=== PATIENT | male | born 1990 | race Caucasian/White ===

== ENCOUNTER 2017-09-22 09:44 | Emergency (ER) | payer MEDICAID, SELFPAY ==
[2017-09-22] MEDS ORDERED: traMADol HCl 50 MG TAB ONE (10:21)
[2017-09-22] MEDS ORDERED: Ibuprofen 400 MG TAB ONE (10:21)
[2017-09-22] MEDS ORDERED: predniSONE 20 MG TAB ONE (10:21)
[2017-09-22] MEDS ORDERED: Amoxicillin/Potassium Clav 875 MG TAB ONE (10:21)
== END 2017-09-22 10:32 | disposition home or self-care (01) ==
LOC: MADERS 09:44 → EDBD 09:44 → MADERS 10:32
DX: J02.9 Acute pharyngitis, unspecified (principal); L50.9 Urticaria, unspecified; Z87.891 Personal history of nicotine dependence
CPT/HCPCS: 99282; J7506

== ENCOUNTER 2018-02-17 06:25 | Emergency (ER) | payer MEDICAID, MEDICARE ==
[2018-02-17] MEDS ORDERED: Sodium Chloride 0.9% 1,000 ML ONE (06:51)
[2018-02-17 07:05] LABS: #Eosinphils 0.2 thou/uL (0.0-0.7); #Lymphocytes 1.7 thou/uL (1.20-3.40); #Monocytes 0.6 thou/uL (0.11-0.59); #Neutrophils 3.4 thou/uL (1.40-6.50); %Basophils 0.7 % (0.0-1.0); %Lymphocytes 28.2 % (21.0-51.0); %Monocytes 10.5 % (0.0-10.0); %Neutrophils 57.7 % (42.0-75.0); Hemoglobin 14.3 g/dL (14.0-18.0); Mean Corpuscular HGB CONC 33.8 g/dL (32.0-36.0); Mean Corpuscular Hemoglobin 30.5 pg (27.0-31.0); Mean Corpuscular Volume 90.4 fL (78.0-98.0); Mean Platelet Volume 6.2 fL (7.4-10.4); Platelet Count 238 thou/uL (130-400); RBC Distribution Width 12.1 % (11.5-14.5); White Blood Cell (WBC) Count 5.9 thou/uL (4.8-10.8)
[2018-02-17 07:20] LABS: ALT (SGPT) 31 U/L (8-55); AST (SGOT) 34 U/L (5-34); Albumin 4.4 g/dL (3.5-5.0); Alkaline Phosphatase 60 U/L (40-150); Anion Gap 15 mmol/L (10-20); BUN (Urea Nitrogen) 9 mg/dL (8.9-20.6); Bilirubin, Total 0.7 mg/dL (0.2-1.2); Calc. Creatinine Clearance 0 mL/min (70-130); Calcium 9.6 mg/dL (7.8-10.44); Carbon Dioxide 25 mmol/L (22-29); Chloride 104 mmol/L (98-107); Estimated GFR-MDRD Greater than 90; Globulin 3.3 g/dL (2.4-3.5); Glucose 116 mg/dL (70-105); Potassium 3.6 mmol/L (3.5-5.1); Protein, Total 7.7 g/dL (6.0-8.3); Sodium 140 mmol/L (136-145)
[2018-02-17] MEDS ORDERED: Clindamycin/D5W 600 mg/50 ml Premix Bag ONE (08:10)
--- NOTE | 2018-02-17 08:24 | CT ---
CT FACE WITH CONTRAST: HISTORY: Methamphetamine abuse. Right-sided jaw swelling since yesterday. Difficulty swallowing. COMPARISON: None. TECHNIQUE: Postcontrast face CT is performed in the axial plane. Reformatted images are submitted for interpret ation. FINDINGS: The visualized brain parenchyma is unremarkable. Adequate aeration of the visualized paranasal sinus es and mastoid air cells. The aerodigestive tract is patent. There is mucosal prominence and some narrowing of the aerodigesti ve tract involving the right nasopharynx, posterior right oral cavity, and hypopharynx. There is ful lness of bilateral palatine tonsils. Adenoid tonsils are not prominent. There is soft tissue swelling involving the left and right aspect of the mandible, extending down to the right aspect of the neck. There is no evidence of a drainable abscess. There is symmetric atten uation of the sternocleidomastoid muscles. There are mildly enlarged bilateral level II lymph nodes. Refer to neck CT report for further detail. Visualized central spinal canal is patent. There is no evidence of a drainable abscess in the face. There is evidence of periodontal disease wi th periapical lucency and cortical erosion involving the posterior most left and right mandibular mol ar teeth. IMPRESSION: 1. Periapical abscess involving bilateral posterior most mandibular molar teeth. There is evidence of associated facial cellulitis without evidence of a drainable soft tissue abscess. 2. Enlarged palatine tonsils and bilateral level II soft tissue neck lymph nodes. POS: [facility]
--- NOTE | 2018-02-17 08:39 | CT ---
POSTCONTRAST SOFT TISSUE NECK CT: HISTORY: Methamphetamine abuse. Right jaw swelling. Difficulty swallowing. COMPARISON: None. TECHNIQUE: Postcontrast soft tissue neck CT is performed in the axial plane. Reformatted images are submitted f or interpretation. FINDINGS: There is asymmetric mucosal prominence of the right nasopharynx, posterior right oral cavity, hypopha rynx. The supraglottic, glottic, and subglottic larynx are unremarkable. Epiglottis has a normal ca liber. Preepiglottic fat is preserved. There is bilateral adenoid tonsillar fullness. There are no masses in the oral cavity. Midline fatt y raphae of the tongue is difficult to assess. Symmetric attenuation of the sternocleidomastoid muscles. Enlarged bilateral level II lymph nodes. Enlarged left level II lymph node measures 1.5 x 0.9 cm. E nlarged right level II lymph node measures 1.8 x 1.1 cm. There is a large left level III lymph node measuring 1.2 x 1.0 cm. Grossly, the great vessels of the neck are patent. Central spinal canal is unremarkable. Cervical spine vertebral body heights are maintained. There i s no fracture. There is no evidence of a soft tissue neck abscess. IMPRESSION: 1. Extensive soft tissue swelling, likely due to a periodontal origin. There is no evidence of a dr ainable abscess. 2. Reactive lymphadenopathy as described above. POS: [facility]
[2018-02-17] MEDS ORDERED: Iopamidol 370 76% 125 ML VIAL FS ONE (10:00)
== END 2018-02-17 09:35 | disposition home or self-care (01) ==
LOC: MADERS 06:25
DX: K04.7 Periapical abscess without sinus (principal); L03.211 Cellulitis of face; Z87.891 Personal history of nicotine dependence
CPT/HCPCS: 70487; 70491; 80053; 85025; 96361; 96365; 99406; J3490; J7050

== ENCOUNTER 2018-02-18 07:29 | Emergency (ER) | payer MEDICAID ==
[2018-02-18] MEDS ORDERED: CEFAZOLIN 1 GM VIAL ONE (08:43)
[2018-02-18] MEDS ORDERED: methylPREDNISolone Sod Succ/PF 125 MG/2 ML VIAL ONE (08:43)
[2018-02-18] MEDS ORDERED: diphenhydrAMINE 50 MG/ML VIAL ONE (08:43)
[2018-02-18 08:53] LABS: Anion Gap 13 mmol/L (10-20); BUN (Urea Nitrogen) 5 mg/dL (8.9-20.6); Calc. Creatinine Clearance 0 mL/min (70-130); Calcium 9.4 mg/dL (7.8-10.44); Carbon Dioxide 25 mmol/L (22-29); Chloride 106 mmol/L (98-107); Estimated GFR-MDRD Greater than 90; Glucose 97 mg/dL (70-105); Sodium 140 mmol/L (136-145)
[2018-02-18 08:58] LABS: Eosinophils 3 % (0-10); Hemoglobin 13.6 g/dL (14.0-18.0); Lymphocytes 28 % (21-51); MDiff Complete? YES; Mean Corpuscular HGB CONC 34.2 g/dL (32.0-36.0); Mean Corpuscular Hemoglobin 31.1 pg (27.0-31.0); Mean Corpuscular Volume 90.9 fL (78.0-98.0); Mean Platelet Volume 6.3 fL (7.4-10.4); Monocytes 5 % (0-10); Neutrophil 59 % (42-75); Platelet Count 227 thou/uL (130-400); RBC Distribution Width 12.1 % (11.5-14.5); Reactive Lymphocytes 5 % (0-10); Red Blood Cell (RBC) Count 4.37 mill/uL (4.70-6.10); White Blood Cell (WBC) Count 5.3 thou/uL (4.8-10.8)
[2018-02-18 17:18] LABS: CRP (Inflammatory) 1.14 mg/dL (= or < 0.5)
== END 2018-02-18 10:38 | disposition short-term general hospital (02) ==
LOC: MADERS 07:29
DX: L03.211 Cellulitis of face (principal); Z87.891 Personal history of nicotine dependence
CPT/HCPCS: 36415; 80048; 85025; 86140; 87040; 96365; 96367; 96375; J0690; J1200; J2930; J3370

== ENCOUNTER 2022-11-22 00:14 | Emergency (ER) | payer MEDICARE, MEDICAID ==
[2022-11-22] MEDS ORDERED: Haloperidol Lactate 5 MG/ML VIAL ONE (00:20)
[2022-11-22] MEDS ORDERED: Lorazepam 2 MG/ML VIAL ONE (00:20)
== END 2022-11-22 07:50 | disposition home or self-care (01) ==
LOC: EEVIPCON 00:14 → MADERS 00:14
DX: F15.20 Other stimulant dependence, uncomplicated (principal); Z87.891 Personal history of nicotine dependence
CPT/HCPCS: 96372; 99283; J1630; J2060

== ENCOUNTER 2022-12-17 12:49 | Emergency (ER) | payer MEDICARE, MEDICAID ==
[~2022-12-17 12:49] MED LIST: Iopamidol 370 76% 100 ML VIAL ONE
[2022-12-17] MEDS ORDERED: Ketorolac Tromethamine 30 MG/ML VIAL ONE (13:29)
[2022-12-17 13:43] LABS: Bilirubin Small (Negative); Blood, Urine Large (Negative); Clarity Clear (Clear); Glucose, Urine (Dipstick) Negative (Negative); Ketone, Urine Trace mg/dL (Negative); Leukocyte Negative (Negative); Nitrite Negative (Negative); Protein, Urine (Dipstick) 30 mg/dL (Neg-Trace); Specific Gravity, Urine 1.025 (1.005-1.030); Urobilinogen > or = 8.0 mg/dL (Less than 2); pH, Urine 6.5 (5.0-9.0)
[2022-12-17 13:50] LABS: Bacteria/HPF Rare-Few HPF (None Seen); CAUTI Indications for Culture Pelvic or flank pain; RBC/HPF Greater than 50 HPF (0-3); Squamous Epithelial 0-3 HPF (0-3); WBC/HPF 0-3 HPF (0-3)
[2022-12-17 13:51] LABS: Urine Culture Reflex No No
[2022-12-17 13:57] LABS: ALT (SGPT) 24 U/L (8-55); AST (SGOT) 22 U/L (5-34); Albumin 3.8 g/dL (3.5-5.0); Alkaline Phosphatase 84 U/L (40-110); Anion Gap 15 mmol/L (10-20); BUN (Urea Nitrogen) 10 mg/dL (8.9-20.6); Band 18 % (5-11); Bilirubin, Total 0.5 mg/dL (0.2-1.2); Calc. Creatinine Clearance 0 mL/min (70-130); Calcium 9.9 mg/dL (7.8-10.44); Carbon Dioxide 27 mmol/L (22-29); Chloride 100 mmol/L (98-107); Estimated GFR 120; Globulin 4.5 g/dL (2.4-3.5); Glucose 91 mg/dL (70-105); Hematocrit 38.7 % (42.0-52.0); Hemoglobin 12.4 g/dL (14.0-18.0); Hypochromia SLIGHT = 6-15 cells (100X) (0-5/hpf); Lymphocytes 10 % (21-51); MDiff Complete? YES; Mean Corpuscular HGB CONC 32.1 g/dL (32.0-36.0); Mean Corpuscular Hemoglobin 28.1 pg (27.0-31.0); Mean Corpuscular Volume 87.8 fl (78.0-98.0); Monocytes 11 % (0-10); Neutrophil 61 % (42-75); Platelet Adequacy Comment Appears Adequate; Platelet Count 348 10x3/uL (130-400); Protein, Total 8.3 g/dL (6.0-8.3); RBC Distribution Width 14.4 % (11.5-14.5); Red Blood Cell (RBC) Count 4.41 mill/uL (4.70-6.10); Sodium 138 mmol/L (136-145); White Blood Cell (WBC) Count 3.4 10x3/uL (4.8-10.8)
[2022-12-17] MEDS ORDERED: Sodium Chloride 0.9% 1,000 ML ONE (15:54)
== END 2022-12-17 17:31 | disposition home or self-care (01) ==
LOC: MADERS 12:49
DX: R59.0 Localized enlarged lymph nodes (principal); Z87.891 Personal history of nicotine dependence
CPT/HCPCS: 71260; 74177; 80053; 81001; 85025; 94760; 96374; J1885; J7050; Q9967

== ENCOUNTER 2023-05-10 14:14 | Emergency (ER) | payer MEDICARE, MEDICAID ==
[2023-05-10] MEDS ORDERED: Ketorolac Tromethamine 30 MG (1 mL) VIAL ONE (14:47)
[2023-05-10 16:49] LABS: ALT (SGPT) 15 U/L (8-55); AST (SGOT) 22 U/L (5-34); Albumin 3.3 g/dL (3.5-5.0); Alkaline Phosphatase 88 U/L (40-110); Anion Gap 16 mmol/L (10-20); BUN (Urea Nitrogen) 18 mg/dL (8.9-20.6); Bilirubin, Total 0.6 mg/dL (0.2-1.2); Calc. Creatinine Clearance 0 mL/min (70-130); Calcium 9.3 mg/dL (7.8-10.44); Carbon Dioxide 25 mmol/L (22-29); Chloride 98 mmol/L (98-107); Estimated GFR 121; Globulin 3.4 g/dL (2.4-3.5); Glucose 94 mg/dL (70-105); Potassium 4.5 mmol/L (3.5-5.1); Protein, Total 6.7 g/dL (6.0-8.3); Sodium 134 mmol/L (136-145)
[2023-05-10 17:03] LABS: Hematocrit 21.7 % (42.0-52.0); Hemoglobin 6.8 g/dL (14.0-18.0); Mean Corpuscular HGB CONC 31.6 g/dL (32.0-36.0); Mean Corpuscular Hemoglobin 29.2 pg (27.0-31.0); Mean Corpuscular Volume 92.3 fl (78.0-98.0); Mean Platelet Volume 6.8 fL (7.4-10.4); Platelet Count 240 10x3/uL (130-400); RBC Distribution Width 19.5 % (11.5-14.5); Red Blood Cell (RBC) Count 2.35 mill/uL (4.70-6.10); White Blood Cell (WBC) Count 2.7 10x3/uL (4.8-10.8)
[2023-05-10 17:04] LABS: Anisocytosis MODERATE=16-30 cells (100X) (0-5/hpf); Band 3 % (5-11); Eosinophils 1 % (0-10); Hypochromia SLIGHT = 6-15 cells (100X) (0-5/hpf); Lymphocytes 1 % (21-51); MDiff Complete? YES; Manual Diff?? YES; Monocytes 9 % (0-10); Myelocyte 1 % (0-0); Neutrophil 78 % (42-75); Platelet Adequacy Comment Appears Adequate; Polychromasia SLIGHT = 2-3 cells (100X) (0-2/hpf); Reactive Lymphocytes 7 % (0-10)
== END 2023-05-10 18:48 | disposition short-term general hospital (02) ==
LOC: MADERS 14:14
DX: D61.9 Aplastic anemia, unspecified (principal); C81.90 Hodgkin lymphoma, unspecified, unspecified site; Z87.891 Personal history of nicotine dependence
CPT/HCPCS: 36415; 71045; 80053; 83605; 85025; 87040; 96372; J1885

== ENCOUNTER 2023-10-22 18:45 | Emergency (ER) | payer OTHER, MEDICAID | END 2023-10-22 19:55 | disposition home or self-care (01) | LOC: MADERS 18:45 | DX: L03.116 Cellulitis of left lower limb (principal); L01.00 Impetigo, unspecified | CPT/HCPCS: 99282 ==

== ENCOUNTER 2024-10-17 15:16 | Emergency (ER) | payer OTHER ==
[2024-10-17 15:50] LABS: #Basophils 0.1 thou/uL (0.0-0.2); #Eosinophils 0.1 thou/uL (0.0-0.7); #Lymphocytes 2.0 thou/uL (1.20-3.40); #Monocytes 0.5 thou/uL (0.11-0.59); #Neutrophils 2.7 thou/uL (1.40-6.50); %Basophils 1.7 % (0.0-1.0); %Eosinophils 2.7 % (0.0-10.0); %Lymphocytes 37.0 % (21.0-51.0); %Monocytes 8.4 % (0.0-10.0); %Neutrophils 50.2 % (42.0-75.0); Hematocrit 44.6 % (42.0-52.0); Hemoglobin 14.7 g/dL (14.0-18.0); Mean Corpuscular Hemoglobin 30.8 pg (27.0-31.0); Mean Corpuscular Volume 93.4 fl (78.0-98.0); Platelet Count 218 10x3/uL (130-400); Red Blood Cell (RBC) Count 4.78 mill/uL (4.70-6.10); White Blood Cell (WBC) Count 5.4 10x3/uL (4.8-10.8)
[2024-10-17 16:03] LABS: Troponin I Less than 0.010 ng/mL (< 0.028)
[2024-10-17 16:04] LABS: ALT (SGPT) 20 U/L (Less than 45); AST (SGOT) 36 U/L (11-34); Albumin 4.5 g/dL (3.1-4.5); Alkaline Phosphatase 65 U/L (40-110); Anion Gap 17 mmol/L (10-20); BUN (Urea Nitrogen) 10 mg/dL (8.9-20.6); Bilirubin, Total 0.4 mg/dL (0.3-1.2); Calc. Creatinine Clearance 0 mL/min (70-130); Calcium 9.0 mg/dL (7.8-10.44); Carbon Dioxide 20 mmol/L (22-29); Chloride 107 mmol/L (98-107); Globulin 2.7 g/dL (2.4-3.5); Glucose 114 mg/dL (70-105); Potassium 4.2 mmol/L (3.5-5.1); Sodium 140 mmol/L (136-145)
[2024-10-17 16:05] LABS: Acetaminophen Less than 10 mcg/mL (Less than 10); Lipase 34 U/L (8-78); Salicylate Less than 8.0 mg/dL (Less than 8.0)
== END 2024-10-17 17:22 | disposition home or self-care (01) ==
LOC: MADERS 15:16
DX: S06.0X9A Concussion with loss of consciousness of unspecified duration, initial encounter (principal); S01.112A Laceration without foreign body of left eyelid and periocular area, initial encounter; R04.0 Epistaxis; S63.501A Unspecified sprain of right wrist, initial encounter; R41.3 Other amnesia; V47.5XXA Car driver injured in collision with fixed or stationary object in traffic accident, initial encounter; Y92.838 Other recreation area as the place of occurrence of the external cause
CPT/HCPCS: 12011; 70450; 70486; 71260; 72125; 74177; 80053; 80307; 83690; 84484; 85025; 93005; 94760; 96374; J3010; Q9967